=== PATIENT | female | born 1970 | race Caucasian/White ===

== ENCOUNTER 2017-11-05 00:57 | Emergency (ER) | payer SELFPAY ==
[~2017-11-05] VITALS: Ht 172.7 cm; Wt 50.2 kg
[2017-11-05] MEDS ORDERED: ketorolac trometh. 30mg/ml inj. IV ONE (02:30)
[2017-11-05] MEDS ORDERED: morphine 4 MG/ML inj SYRINge IV ONE (02:30)
[2017-11-05] MEDS ORDERED: ondansetron/PF 4mg/2ml inj IV ONE (02:30)
[2017-11-05] MEDS ORDERED: methylPREDNISolone sod succ 125mg/2ml vial IV ONE (04:10)
[2017-11-05] MEDS ORDERED: IBUP-1984 PO (04:14)
[2017-11-05] MEDS ORDERED: HYDR-569 PO (04:14)
[2017-11-05] MEDS ORDERED: METH4TAB81 PO (04:14)
[2017-11-05 04:22] VITALS: BP 104/54
== END 2017-11-05 04:24 | disposition home or self-care (01) ==
LOC: ER 00:58
DX: M62.830 Muscle spasm of back (principal); G89.29 Other chronic pain
CPT/HCPCS: 96374; 96375; 99284; J1885; J2270; J2405; J2930

== ENCOUNTER 2025-06-04 15:14 | Emergency (ER) | payer SELFPAY ==
[~2025-06-04] VITALS: Ht 172.7 cm; Wt 61.4 kg
[~2025-06-04 15:14] MED LIST: HYDR-4383 PO; METH4TAB81 PO
[2025-06-04 15:20] VITALS: BP 133/83; PULSE 75; RESP 18; TEMP 97.4; O2SAT 100
--- NOTE | 2025-06-04 15:52 | Physician Documentation ---
History of Present Illness General Chief Complaint: Sore Throat Stated Complaint: THROAT PAIN Time Seen by MD: 15:40 Primary Medical Doctor: "[place]" History of Present Illness Initial Comments 54-year-old female who presents to the emergency department with complaints of voice loss that BM and a sore throat 2-1/2 days ago. Additionally requesting chest x-ray for some mild shortness of breath that is worse at night. He has been no associated cough, fever or dyspnea on exertion. No associated chest pain or dependent edema. Used to be a prior smoker. Medication Reconciliation Allergies: Coded Allergies: No Known Allergies (Unverified , 06/04/25) Scheduled Doxycycline Monohydrate (Doxycycline Monohydrate), 100 MG PO BID Hydrocodone/Acetaminophen ([place] 5-325 Tablet), 1-2 TAB PO Q4HPRN Methylprednisolone (Medrol Dosepak), 1 PACKET PO UD Past Medical History Past Medical History: Chronic Back Pain Past Surgical History: no surgical history Lives In: Home Review of Systems All Other Systems at this time: Reviewed and Negative Constitutional: Denies: fever, chills HENT: Reports: throat pain ENT Voice loss RESP: Reports: short of breath; Denies: cough, sputum, orthopnea Physical Exam Physical Exam Vital Signs: RN Vital Signs have been reviewed: Yes, Temperature: 97.4, Source: Temporal, Heart Rate: 75, Respiratory Rate: 18, BP: 133/83, Pulse Oximetry: 100, Weight: 61.360 General Appearance: alert, WD/WN, mild distress Head: normal inspection Face: normal inspection Pupils/EOM/Fundus: PERRLA Nose: normal inspection Gag present: Yes Neck: non-tender, full range of motion Respiratory: lungs clear Chest: no accessory muscle use Cardiovascular: normal peripheral pulses Back: normal inspection Extremities: normal range of motion Neurologic: oriented x4 Motor / Sensory: no motor deficit, no sensory deficit Psychiatric: normal mood/affect Skin: normal color Lymphatic: no adenopathy Progress Results/Orders Results/Orders Orders - ALTAF WILLSON PAC Chest,Single View (06/04/25 15:46) Completed Orders - ALTAF WILLSON PAC Chest,Single View (06/04/25 15:46) Vital Signs 06/04/25 15:20 Temp 97.4 Pulse 75 Resp 18 B/P (MAP) 133/83 Pulse Ox 100 Medical Decision Making Additional information obtaine: N/A Findings 54-year-old female requires chest x-ray imaging screening to evaluate for tumors, mass, mobile infiltrates effusions or other unforeseen pulmonary e tiologies due to being a long-time smoker. Otherwise examination was consistent with working diagnosis of laryngitis for which I will place her on doxycycline. She is pending re-evaluation and chest x-ray. Differential Diagnosis Differential does include but not limited to pneumonia, tumor, mass, viral or bacterial processes, effusions an autoimmune etiologies. Departure Disposition: HOME / SELF CARE / HOMELESS Impression: Primary Impression: Acute laryngitis Additional Impression: Smoking history Condition: Stable Discharge Instructions: Laryngitis Additional Instructions: Please begin antibiotic as directed and inhaler. Please make follow up appointment with the primary care physician for re-evaluation and return to the emergency department if worse. Referrals: NO PRIMARY CARE PROVIDER (PCP) Prescriptions Albuterol Sulfate (Ventolin Hfa) 90 Mcg Hfa.aer.ad 2 PUFFS INH Q4HPRN, #1 INHALER Prov: ALTAF WILLSON 06/04/25 Doxycycline Monohydrate (Doxycycline Monohydrate) 100 Mg Capsule 100 MG PO BID, #20 CAP may sub doxycycline hyclate or azithromycin z-pack as prescribed Prov: ALTAF WILLSON 06/04/25 Education Educated: Patient Educated regarding: diagnosis, treatment, prognosis, need for follow up Signature Scribe Signature: . Attestation: . ALTAF WILLSON Jun 04, 2025 15:52
[2025-06-04] MEDS ORDERED: DOXY100C43 PO (16:17)
[2025-06-04] MEDS ORDERED: ALBU18HF2 INH (16:22)
--- NOTE | 2025-06-04 16:26 | RADIOLOGY REPORT ---
EXAM: DI CHEST,SINGLE VIEW HISTORY: SOB COMPARISON: None TECHNIQUE: PA upright view of the chest was performed. FINDINGS: No pneumothorax, consolidative infiltrates, or pulmonary edema. The heart is not enlarged. IMPRESSION: No acute intrathoracic process.
== END 2025-06-04 16:23 | disposition home or self-care (01) ==
LOC: ER 15:14
DX: J04.0 Acute laryngitis (principal); J02.9 Acute pharyngitis, unspecified; Z87.891 Personal history of nicotine dependence
CPT/HCPCS: 71045; 99283